=== PATIENT | male | born 1965 | race Hispanic/Latino ===

== ENCOUNTER → 2017-07-20 | Outpatient (CLI) | payer OTHER | LOC: OIH 09:58 | PROVIDERS: ATTEND Internal Medicine | DX: S43.401A Unspecified sprain of right shoulder joint, initial encounter (principal); X58.XXXA Exposure to other specified factors, initial encounter; Y93.89 Activity, other specified; Y92.89 Other specified places as the place of occurrence of the external cause; Y99.8 Other external cause status | CPT/HCPCS: 73030 ==

== ENCOUNTER → 2018-05-21 | Outpatient (CLI) | payer OTHER | END | disposition home or self-care (01) | LOC: RAH 13:53 | PROVIDERS: ATTEND Internal Medicine | DX: M47.894 Other spondylosis, thoracic region (principal) | CPT/HCPCS: 72082 ==

== ENCOUNTER 2018-08-04 11:47 | Observation (INO) | payer OTHER ==
[~2018-08-04] VITALS: Ht 167.6 cm; Wt 90.7 kg
[2018-08-04 12:07] LABS: EOSINOPHILS % (AUTO) 2.7 % (0.0-8.0); LYMPHOCYTES % (AUTO) 39.5 % (21.0-51.0); MEAN CORPUSCULAR HEMOGLOBIN 31.2 pg (27.0-33.0); MEAN CORPUSCULAR HGB CONC 33.9 g/dL (32.0-36.0); NEUTROPHILS % (AUTO) 49.8 % (40.0-77.0); NUCLEATED RED BLOOD CELLS 0.2 % (0.0-0.19); PLATELET COUNT (AUTO) 211 K/uL (130-400); RED BLOOD CELL COUNT(AUTO) 4.68 MIL/uL (4.50-6.20); RED CELL DISTRIBUTION WIDTH 13.4 % (11.0-15.5); WHITE BLOOD COUNT (AUTO) 4.9 K/uL (4.8-10.8)
[2018-08-04 12:18] LABS: POTASSIUM 4.2 mmol/L (3.5-5.1)
[2018-08-04] MEDS ORDERED: MORPHINE SULFATE 4 MG/1ML SYG ONE (12:21)
[2018-08-04 12:28] LABS: BILIRUBIN,TOTAL 0.6 mg/dL (0.2-1.0); TOTAL PROTEIN, SERUM 7.2 g/dL (6.0-8.3)
[2018-08-04] MEDS ORDERED: ASPIRIN 325 MG TABLET ONE (12:31)
[2018-08-04] MEDS ORDERED: MAG HYDROX/AL HYDROX/SIMETH ES 30 ML SUSP UDCUP ONE (13:57)
[2018-08-04] MEDS ORDERED: LIDOCAINE HCL 2% VISCOUS 15 ML UDCUP ONE (13:57)
[2018-08-04] MEDS: MAG HYDROX/AL HYDROX/SIMETH ES 30 ML SUSP UDCUP PO SCH ×2 (15:00→21:51)
[2018-08-04] MEDS: PANTOPRAZOLE SODIUM 40 MG TABLET.DR PO SCH (15:14)
[2018-08-04] MEDS ORDERED: LIDOCAINE HCL 2% VISCOUS 30 ML, MAG HYDROX/AL HYDROX/SIMETH 30 ML, DICYCLOMINE HCL 20 MG PO SCH ×3 (15:30)
[2018-08-04] MEDS ORDERED: COMPOUND PO MISCELLANEOUS 1 EACH MISC MISC PRN (15:30)
[2018-08-04] MEDS: REGADENOSON 0.4 MG/5 ML PF SYG IVP SCH (17:15)
[2018-08-04 18:13] LABS: CREATINE KINASE, TOTAL 123 U/L (21-232); MYOGLOBIN 42 ng/mL (10-92); TROPONIN I < 0.04 ng/mL (0.00-0.06)
[2018-08-04] MEDS ORDERED: ACET1TAB15 PO (20:46)
[2018-08-04] MEDS ORDERED: MELO-108 PO (20:46)
[2018-08-04] MEDS ORDERED: NITR0.4T50 SL (20:46)
[2018-08-04] MEDS ORDERED: METO-391 PO (20:46)
[2018-08-04 21:15] VITALS: BP 118/76
[2018-08-04] MEDS ORDERED: NITROGLYCERIN 0.4 MG SL TAB SL PRN (21:30)
[2018-08-04] MEDS: METOPROLOL TARTRATE 25 MG TAB PO SCH (21:52)
[2018-08-04 23:20] VITALS: BP 116/75
[2018-08-05] MEDS: MAG HYDROX/AL HYDROX/SIMETH ES 30 ML SUSP UDCUP PO SCH ×4 (03:00→20:41)
[2018-08-05 04:00] VITALS: BP 96/55
[2018-08-05 08:00] VITALS: BP 113/74
[2018-08-05] MEDS ORDERED: ACETAMINOPHEN WITH CODEINE PO PRN (09:00)
[2018-08-05] MEDS: REGADENOSON 0.4 MG/5 ML PF SYG IVP SCH (09:41)
[2018-08-05 11:00] VITALS: BP 116/73
[2018-08-05] MEDS: PANTOPRAZOLE SODIUM 40 MG TABLET.DR PO SCH (13:02)
[2018-08-05] MEDS: METOPROLOL TARTRATE 25 MG TAB PO SCH ×2 (13:02→20:41)
[2018-08-05] MEDS: MELOXICAM 7.5 MG TABLET PO SCH (13:03)
[2018-08-05 16:00] VITALS: BP 110/76
[2018-08-05 19:30] VITALS: BP 106/72
[2018-08-05] MEDS ORDERED: TRAMADOL HCL 50 MG TABLET PO PRN (21:00)
[2018-08-05 23:22] VITALS: BP 96/71
[2018-08-06] MEDS: MAG HYDROX/AL HYDROX/SIMETH ES 30 ML SUSP UDCUP PO SCH ×2 (02:27→10:28)
[2018-08-06 03:40] VITALS: BP 95/58
[2018-08-06 07:30] VITALS: BP 114/75
[2018-08-06] MEDS: MELOXICAM 7.5 MG TABLET PO SCH (10:13)
[2018-08-06] MEDS: METOPROLOL TARTRATE 25 MG TAB PO SCH (10:13)
[2018-08-06] MEDS: PANTOPRAZOLE SODIUM 40 MG TABLET.DR PO SCH (10:13)
[2018-08-06 11:00] VITALS: BP 111/71
--- NOTE | 2018-08-06 16:00 | NUR ---
DISCHARGE PATIENT GIVEN DISCHARGE INSTRUCTIONS AND EDUCATION, INCLUDING FOLLOW UP APPOINTMENTS. NO NEW MEDICATIONS ORDERED. PATIENT VERBALIZED UNDERSTANDING OF ALL EDUCATION VIA TEACH BACK. IV DISCONTINUED, CATHETER INTACT. 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 NO SIGNS OF DISTRESS NOTED UPON DISCHARGE. PATIENT LEFT VIA WHEELCHAIR WITH SPOUSE TO PRIVATE CAR. ALL BELONGINGS TAKEN WITH. Addendum: 08/06/18 at 2015 by KANG FRANCISCO RN RN Amended: Links added.
--- NOTE | 2018-08-06 16:03 | NUR ---
DISCHARGE PATIENT GIVEN DISCHARGE INSTRUCTIONS AND EDUCATION, INCLUDING FOLLOW UP APPOINTMENT WITH CARDIOLOGY. PATIENT VERBALIZED UNDERSTANDING OF ALL EDUCATION GIVEN VIA TEACH BACK. NO NEW MEDICATIONS ORDERED. NO QUESTIONS OR CONCERNS VOICED AT THIS TIME. IV DISCONTINUED, CATHETER INTACT. 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 NO SIGNS OF DISTRESS NOTED UPON DISCHARGE. PATIENT LEFT VIA AMBULATORY TO PRIVATE CAR. AT SIDE. ALL BELONGINGS TAKEN WITH. Addendum: 08/06/18 at 1607 by KANG FRANCISCO RN RN Amended: Links added.
== END 2018-08-06 16:00 | disposition home or self-care (01) ==
LOC: EDH 11:47 → EDHIP 11:48 → 4BH 20:30
PROVIDERS: ADMIT Internal Medicine Critical Care Medicine; ATTEND Internal Medicine Critical Care Medicine
DX: R07.89 Other chest pain (principal); G43.909 Migraine, unspecified, not intractable, without status migrainosus; I10 Essential (primary) hypertension; I63.9 Cerebral infarction, unspecified; Z86.19 Personal history of other infectious and parasitic diseases; M41.9 Scoliosis, unspecified; Z88.0 Allergy status to penicillin; Z85.05 Personal history of malignant neoplasm of liver; G89.4 Chronic pain syndrome
CPT/HCPCS: 36415; 70450; 71045; 78452; 80053; 82550; 83874; 84484 ×3; 85025; 93005; 93306; 99284; A9500 ×2; G0378 ×52; J2270; J2785

== ENCOUNTER → 2018-10-05 | Outpatient (CLI) | payer OTHER ==
[~2018-10-05] MED LIST: ACET1TAB15 PO; MELO-108 PO; METO-391 PO
== END | disposition home or self-care (01) ==
LOC: RAH 13:51
PROVIDERS: ATTEND Internal Medicine Cardiovascular Disease
DX: Z13.6 Encounter for screening for cardiovascular disorders (principal)
CPT/HCPCS: 75571